=== PATIENT | female | born 1960 | race Caucasian/White ===

== ENCOUNTER 2016-11-30 18:04 | Inpatient (IN) | payer SELFPAY ==
[~2016-11-30] VITALS: Ht 162.6 cm; Wt 120.7 kg
[~2016-11-30 18:04] MED LIST: NAPROSYN500 MG PO
[2016-11-30 19:38] LABS: EOSINOPHIL (%) 0.6 % (0-5); EOSINOPHIL COUNT 0.1 K/uL (0-0.3); HEMATOCRIT 42.5 % (36.0-46.0); IMMATURE GRANULOCYTE (%) 0.4 % (0.0-0.7); IMMATURE GRANULOCYTE COUNT 0.1 K/uL; INSTRUMENT ABS NEUTROPHIL CT 8.8 K/uL; LYMPHOCYTE COUNT 2.3 K/uL (1.0-2.8); MCH 29.3 PG (29.0-34.0); MCHC 32.5 G/DL (30.0-36.0); MCV 90.2 FL (83-99); MEAN PLAT.VOLUME 9.7 uM^3 (9.5-12.4); MONOCYTE (%) 4.2 % (3-12); MONOCYTE COUNT 0.5 K/uL (0-0.8); NEUTROPHIL (%) 75.1 % (45-76); NEUTROPHIL COUNT 8.8 K/uL (1.8-6.4); PLATELET COUNT 301 K/uL (156-360); RBC DIS.WIDTH-CV 13.2 % (11.8-14.6); RBC DIS.WIDTH-SD 43.5 % (39-53); RED BLOOD COUNT 4.71 M/uL (3.80-5.20); WHITE BLOOD COUNT 11.7 K/uL (4.1-10.2)
[2016-11-30 19:44] LABS: INTER. NORMALIZED RATIO 1.1; PROTHROMBIN TIME 11.8 SEC (10.2-12.9)
[2016-11-30 19:46] LABS: PTT 26.1 SEC (25-37)
[2016-11-30 19:48] LABS: CHLORIDE 104 mEq/L (99-109); POTASSIUM 3.8 mEq/L (3.7-5.4); SODIUM 141 mEq/L (136-147)
[2016-11-30 19:50] LABS: GLUCOSE 153 mg/dL (70-99)
[2016-11-30 19:52] LABS: ANION GAP 15 MEQ/L (2-14)
[2016-11-30 19:54] LABS: GFR ESTIMATE (CALCULATED) > 59 mL/min/
[2016-11-30 19:55] LABS: UREA NITROGEN (BUN) 11 mg/dL (9-23)
[2016-11-30 20:05] LABS: TROP-I INTERPRETATION POSITIVE; TROPONIN-I 0.62 ng/mL (0.0-0.30)
[2016-11-30] MEDS ORDERED: ADVIL,NUPRIN,M200 MG PO (20:50)
[2016-11-30] MEDS ORDERED: CITALOPRAM HBR10 MG PO (20:50)
[2016-11-30 23:55] VITALS: BP 134/86
[2016-12-01] VITALS (27 sets, daily range): BP systolic 121–162; BP diastolic 67–93
[2016-12-01 00:10] LABS: TROP-I INTERPRETATION POSITIVE; TROPONIN-I 1.11 ng/mL (0.0-0.30)
[2016-12-01 01:27] LABS: METH RESISTANT S AUREUS PCR NEGATIVE (NEGATIVE)
[2016-12-01 01:31] LABS: PROBE CHECK PASS; SPECIMEN PROCESSING CONTROL PASS
[2016-12-01 05:09] LABS: HEMATOCRIT 42.5 % (36.0-46.0); MCHC 31.8 G/DL (30.0-36.0); MCV 91.2 FL (83-99); PLATELET COUNT 247 K/uL (156-360); RBC DIS.WIDTH-CV 13.3 % (11.8-14.6); RBC DIS.WIDTH-SD 44.6 % (39-53); RED BLOOD COUNT 4.66 M/uL (3.80-5.20); WHITE BLOOD COUNT 13.6 K/uL (4.1-10.2)
[2016-12-01 05:31] LABS: ANION GAP 13 MEQ/L (2-14); CHLORIDE 104 MEQ/L (99-109); GFR ESTIMATE (CALCULATED) > 59 mL/min/; GLUCOSE 153 mg/dL (70-99); MAGNESIUM 1.9 mg/dl (1.3-2.7); SAMPLE HEMOLYSIS CHECK 0; SAMPLE ICTERIC CHECK 0; SAMPLE LIPEMIA CHECK 0; SODIUM 135 MEQ/L (136-147); UREA NITROGEN (BUN) 10 mg/dL (9-23)
[2016-12-01 05:38] LABS: TROP-I INTERPRETATION POSITIVE; TROPONIN-I 1.29 ng/mL (0.0-0.30)
[2016-12-01 12:56] LABS: TROP-I INTERPRETATION POSITIVE; TROPONIN-I 3.22 ng/mL (0.0-0.30)
[2016-12-01 17:39] LABS: POINT-OF-CARE METER ID UU14174217
[2016-12-01 19:13] LABS: TROP-I INTERPRETATION POSITIVE; TROPONIN-I 77.75 ng/mL (0.0-0.30)
[2016-12-02] VITALS (10 sets, daily range): BP systolic 101–141; BP diastolic 51–76
[2016-12-02 00:21] LABS: POINT-OF-CARE METER ID UU14208751
[2016-12-02 06:16] LABS: HEMATOCRIT 42.5 % (36.0-46.0); MCH 29.4 PG (29.0-34.0); MCHC 32.5 G/DL (30.0-36.0); MCV 90.6 FL (83-99); MEAN PLAT.VOLUME 9.8 uM^3 (9.5-12.4); PLATELET COUNT 295 K/uL (156-360); RBC DIS.WIDTH-CV 13.6 % (11.8-14.6); RBC DIS.WIDTH-SD 45.3 % (39-53); RED BLOOD COUNT 4.69 M/uL (3.80-5.20); WHITE BLOOD COUNT 15.2 K/uL (4.1-10.2)
[2016-12-02 06:57] LABS: TROP-I INTERPRETATION POSITIVE; TROPONIN-I 30.77 ng/mL (0.0-0.30)
[2016-12-02 07:18] LABS: ANION GAP 8 MEQ/L (2-14); CHLORIDE 98 MEQ/L (99-109); GFR ESTIMATE (CALCULATED) > 59 mL/min/; GLUCOSE 117 mg/dL (70-99); POTASSIUM 3.4 MEQ/L (3.7-5.4); SAMPLE HEMOLYSIS CHECK 0; SAMPLE ICTERIC CHECK 0; SAMPLE LIPEMIA CHECK 0; SODIUM 137 MEQ/L (136-147); UREA NITROGEN (BUN) 12 mg/dL (9-23)
[2016-12-02] MEDS ORDERED: NITROSTAT0.4 MG SL (11:38)
[2016-12-02] MEDS ORDERED: LOPRESSOR25 MG PO (11:38)
[2016-12-02] MEDS ORDERED: ASPIR-LOW81 MG PO (11:38)
[2016-12-02] MEDS ORDERED: ATORVASTATIN CA40 MG PO (11:38)
[2016-12-02] MEDS ORDERED: BRILINTA90 MG PO (11:38)
== END 2016-12-02 12:35 | disposition home or self-care (01) | DRG 247 ==
LOC: EME 18:04 → 4WEST 20:55 → EDOF 20:55 → 4WEST 22:36 → EDOF 22:36 → 4WEST 22:36
PROVIDERS: Emergency Medicine
DX: I21.4 Non-ST elevation (NSTEMI) myocardial infarction (principal); D72.829 Elevated white blood cell count, unspecified; R73.9 Hyperglycemia, unspecified; R51 Headache; I25.82 Chronic total occlusion of coronary artery; I10 Essential (primary) hypertension; E78.5 Hyperlipidemia, unspecified; E66.01 Morbid (severe) obesity due to excess calories; G47.33 Obstructive sleep apnea (adult) (pediatric); Z79.82 Long term (current) use of aspirin; Z90.49 Acquired absence of other specified parts of digestive tract
CPT/HCPCS: 71010; 71275; 80048; 82948; 83735; 84100; 84484; 85025; 85027; 85347; 85610; 85730; 87641; 93005; 93306; 94799; 99281; 99285; C1725; C1760; C1769; C1874; C1887; C1894; J0690; J1644; J1815; J1940; J2060; J2250; J2270; J2405; J2765; J3010; J7030; S0028